=== PATIENT | female | born 1960 | race Two or more races ===

== ENCOUNTER → 2016-09-14 | Outpatient (CLI) | payer MEDICARE, MEDICAID ==
[2014-04-07 11:00] VITALS: BP 111/72
[~2016-09-14] MED LIST: ALBU0.63 IH; ALPR0.25 PO; AMIT25TA PO; CELE200C PO; COLE1TAB PO; DEXL60CA PO; DICY10CA53 PO; DICY20TA3 PO; ERGO500012 PO; FERR325T31 PO; GABA-585 PO; GUAI5LIQ3 PO; HYDR2TAB PO; HYDR2TAB13 PO; HYDR4TAB PO; IOHEXOL 240 MG/ML 50ML VIAL. PO ONE; IOHEXOL 300 MG/ML 75 ML VIAL IV ONE; KETO75CA PO; MECL25TA3 PO; OXYC-323 PO; SUCR1TAB29 PO; VENTOLIN HFA18 GM IH; WARF2TAB7 PO; WARF4TAB7 PO
--- NOTE | 2016-09-14 13:52 | RAD ---
CT of the abdomen with contrast, 09/14/2016: History: Abdominal pain Multidetector CT imaging was performed following oral and IV administration of contrast. The gallbladder is surgically absent. The liver demonstrates a mildly prominent Alex's lobe. No hepatic mass or bile duct dilatation is seen. The pancreas is normal. The spleen is of normal size. There is minimal renal cortical scarring. The kidneys show no evidence of obstruction or mass. There is moderate aortoiliac calcific plaquing without evidence of aneurysm. No retroperitoneal or mesenteric adenopathy is seen. The visualized bowel loops are unremarkable. No free fluid or free air is evident in the abdomen or pelvis. IMPRESSION: 1. Status post cholecystectomy. 2. Moderate aortoiliac atherosclerosis. 3. No acute abdominal abnormality is detected. PQRS Compliance Statement: One or more of the following individualized dose reduction techniques were utilized for this examination: 1. Automated exposure control 2. Adjustment of the mA and/or kV according to patient size 3. Use of iterative reconstruction technique
== END | disposition home or self-care (01) ==
LOC: CT 11:55
PROVIDERS: ATTEND Internal Medicine
DX: R10.9 Unspecified abdominal pain (principal); K76.0 Fatty (change of) liver, not elsewhere classified
CPT/HCPCS: 74160

== ENCOUNTER → 2017-01-11 | Outpatient (CLI) | payer MEDICARE, MEDICAID ==
[2014-04-07 11:00] VITALS: BP 111/72
[~2017-01-11] MED LIST changes: -DEXL60CA PO; +DEXL60CA2 PO; -ERGO500012 PO; +ERGO500027 PO; +FERR-36 PO; -FERR325T31 PO; -HYDR2TAB13 PO; +HYDR2TAB31 PO; -IOHEXOL 240 MG/ML 50ML VIAL. PO ONE; -IOHEXOL 300 MG/ML 75 ML VIAL IV ONE; -SUCR1TAB29 PO; +SUCR1TAB35 PO
--- NOTE | 2017-01-11 18:32 | RAD ---
DATE: 01/11/2017 EXAM: DIGITAL SCREEN BILAT W/CAD HISTORY: Routine screening COMPARISON: 01/12/2016 This study was interpreted with the benefit of Computerized Aided Detection (CAD). The breast parenchyma shows scattered fibroglandular densities. Breast parenchyma level B. FINDINGS: No new or enlarging breast densities are seen. Benign type calcifications are again noted. No suspicious microcalcifications have developed. IMPRESSION: Stable mammograms without evidence of malignancy. BI-RADS CATEGORY: 2 BENIGN FINDING(S) RECOMMENDED FOLLOW-UP: 12M 12 MONTH FOLLOW-UP PQRS compliance statement: Patient information was entered into a reminder system with a target due date for the next mammogram. Mammography is a sensitive method for finding small breast cancers, but it does not detect them all and is not a substitute for careful clinical examination. A negative mammogram does not negate a clinically suspicious finding and should not result in delay in biopsying a clinically suspicious abnormality. "Our facility is accredited by the [employer] Mammography [employer]."
== END | disposition home or self-care (01) ==
LOC: MAMMO 13:42
PROVIDERS: ATTEND Internal Medicine
DX: Z12.31 Encounter for screening mammogram for malignant neoplasm of breast (principal)
CPT/HCPCS: G0202; 77067

== ENCOUNTER → 2017-09-16 | Outpatient (CLI) | payer MEDICARE, MEDICAID | END | disposition home or self-care (01) | LOC: NM 07:44 | DX: K30 Functional dyspepsia (principal) | CPT/HCPCS: 78264; A9541 ==

== ENCOUNTER → 2018-02-07 | Day surgery (SDC) | payer MEDICARE, MEDICAID ==
[~2018-02-07] MED LIST changes: +HYDROmorphone 2 MG/ML VIAL IV PRN; +IV RINGERS,LACTATED 1000ML 1,000 ML IV SCH; +LIDOCAINE 1% PF 2 ML VIAL. ID PRN; +MORPHINE SULFATE 2 MG/ML VIAL. IV PRN; +NYSTATIN TOPICAL POWDER 15GM BOTTLE. TP PRN; +ONDANSETRON PF 4 MG/2 ML VIAL. IV PRN; +PROCHLORPERAZINE 10 MG/2 ML VIAL. IV PRN; +PROPOFOL 20 ML IV ONE; -WARF2TAB7 PO; +WARF2TAB96 PO; +WARF4TAB64 PO; -WARF4TAB7 PO; +fentaNYL PF VIAL 100 MCG/2 ML VIAL IV PRN
[2018-02-07 10:35] VITALS: BP 180/91
== END ==
LOC: OPS 09:08 → EDSTATUS 10:00
PROVIDERS: ATTEND Internal Medicine Gastroenterology
DX: R10.13 Epigastric pain (principal); K21.9 Gastro-esophageal reflux disease without esophagitis; E11.9 Type 2 diabetes mellitus without complications; F32.9 Major depressive disorder, single episode, unspecified; F41.9 Anxiety disorder, unspecified; E03.9 Hypothyroidism, unspecified; K76.0 Fatty (change of) liver, not elsewhere classified; E78.00 Pure hypercholesterolemia, unspecified; J45.909 Unspecified asthma, uncomplicated; Z87.01 Personal history of pneumonia (recurrent); Z90.49 Acquired absence of other specified parts of digestive tract; Z90.710 Acquired absence of both cervix and uterus; Z98.51 Tubal ligation status; Z87.39 Personal history of other diseases of the musculoskeletal system and connective tissue; Z96.651 Presence of right artificial knee joint; Z87.440 Personal history of urinary (tract) infections
CPT/HCPCS: 43235; J2704; J7120

== ENCOUNTER → 2018-02-08 | Outpatient (CLI) | payer MEDICARE, MEDICAID ==
[2018-02-07 10:35] VITALS: BP 180/91
[~2018-02-08] MED LIST changes: -HYDROmorphone 2 MG/ML VIAL IV PRN; +IOHEXOL 240 MG/ML 50ML VIAL. PO ONE; +IOHEXOL 300 MG/ML 100ML VIAL. IV ONE; -IV RINGERS,LACTATED 1000ML 1,000 ML IV SCH; -LIDOCAINE 1% PF 2 ML VIAL. ID PRN; -MORPHINE SULFATE 2 MG/ML VIAL. IV PRN; -NYSTATIN TOPICAL POWDER 15GM BOTTLE. TP PRN; -ONDANSETRON PF 4 MG/2 ML VIAL. IV PRN; -PROCHLORPERAZINE 10 MG/2 ML VIAL. IV PRN; -PROPOFOL 20 ML IV ONE; -fentaNYL PF VIAL 100 MCG/2 ML VIAL IV PRN
--- NOTE | 2018-02-08 15:40 | RAD ---
CT of the abdomen and pelvis with contrast, 02/08/2018: HISTORY: Abdominal pain Multidetector CT imaging was performed following oral and IV administration of contrast. Comparison is made to a study from 09/14/2016. The gallbladder is surgically absent. The liver is now of lower than normal density in a diffuse pattern compatible with fatty change. No hepatic mass or bile duct dilatation is seen. The pancreas is unremarkable. The spleen is of normal size. No renal or adrenal abnormality is detected. There is moderate calcific plaquing of the abdominal aorta without evidence of aneurysm. No abdominal or pelvic adenopathy is seen. The uterus is surgically absent. The bowel loops are not dilated. No free fluid or free air is evident in the abdomen or pelvis. IMPRESSION: 1. Hepatic steatosis. 2. No acute abdominal or pelvic abnormality is detected. PQRS Compliance Statement: One or more of the following individualized dose reduction techniques were utilized for this examination: 1. Automated exposure control 2. Adjustment of the mA and/or kV according to patient size 3. Use of iterative reconstruction technique Electronically signed by: Jovanni Johnson MD (02/08/2018 3:37 PM) [facility]
== END | disposition home or self-care (01) ==
LOC: CT 09:21
PROVIDERS: ATTEND Internal Medicine Gastroenterology
DX: K76.0 Fatty (change of) liver, not elsewhere classified (principal); J45.909 Unspecified asthma, uncomplicated; E03.9 Hypothyroidism, unspecified; E11.9 Type 2 diabetes mellitus without complications; Z90.710 Acquired absence of both cervix and uterus
CPT/HCPCS: 74177; Q9966; Q9967

== ENCOUNTER → 2018-04-14 | Outpatient (CLI) | payer MEDICARE, MEDICAID ==
[2018-02-07 10:35] VITALS: BP 180/91
[~2018-04-14] MED LIST changes: -IOHEXOL 240 MG/ML 50ML VIAL. PO ONE; -IOHEXOL 300 MG/ML 100ML VIAL. IV ONE
--- NOTE | 2018-04-17 10:38 | RAD ---
DATE: 04/17/2018 EXAM: MAMMO AJAY SCREENING BILATERAL HISTORY: Routine screening COMPARISON: Previous mammogram from 2017 and 2016 This study was interpreted with the benefit of Computerized Aided Detection (CAD). FINDINGS: Breast Density: SCATTERED The breast parenchyma shows scattered fibroglandular densities. Breast parenchyma level B. The skin and nipples are within normal limits. There is an oval-shaped well-circumscribed mass in the medial aspect of the left breast measuring 8 mm and approximately 5.3 cm from the nipple most likely at 9-10 o'clock position. Otherwise, no suspicious ossifications, spiculated mass or area of architectural distortion. IMPRESSION: Left medial breast mass as described above likely simple cyst or a intramammary lymph node. However further evaluation with ultrasound recommended. BI-RADS CATEGORY: 0 INCOMPLETE: NEED ADDITIONAL IMAGING EVALUATION AND/OR PRIOR MAMMOGRAMS FOR COMPARISON RECOMMENDED FOLLOW-UP: ADD ADDITIONAL IMAGING. Ultrasound of the left medial breast recommended. PQRS compliance statement: Patient information was entered into a reminder system with a target due date for the next mammogram. Mammography is a sensitive method for finding small breast cancers, but it does not detect them all and is not a substitute for careful clinical examination. A negative mammogram does not negate a clinically suspicious finding and should not result in delay in biopsying a clinically suspicious abnormality. "Our facility is accredited by the [employer] Mammography Program."
== END | disposition home or self-care (01) ==
LOC: MAMMO 13:58
PROVIDERS: ATTEND Internal Medicine
DX: Z12.31 Encounter for screening mammogram for malignant neoplasm of breast (principal); N63.22 Unspecified lump in the left breast, upper inner quadrant
CPT/HCPCS: 77063; 77067

== ENCOUNTER → 2018-04-19 | Outpatient (CLI) | payer MEDICARE, MEDICAID ==
[2018-02-07 10:35] VITALS: BP 180/91
--- NOTE | 2018-04-19 14:34 | RAD ---
Left breast ultrasound, 04/19/2018: History: Breast nodule A targeted ultrasound exam of the left breast was performed at the 9-10:00 location where a small nodule seen on recent mammography. At the 10:00 location approximately 5 cm from the nipple there is a 7 x 3 x 4 mm nodule. Its margins are smooth. It is nearly anechoic with only a few low level internal echoes. No significant posterior acoustic enhancement or shadowing is seen. The features are suggestive of a complicated cyst. No other abnormality is seen in this region. IMPRESSION: Probably benign small left breast nodule as described above. Sonographic surveillance beginning in 4-6 months is suggested. BI-RADS 3-probably benign findings
== END | disposition home or self-care (01) ==
LOC: US 13:55
PROVIDERS: ATTEND Internal Medicine
DX: R92.8 Other abnormal and inconclusive findings on diagnostic imaging of breast (principal)
CPT/HCPCS: 76641

== ENCOUNTER → 2018-08-11 | Outpatient (CLI) | payer MEDICARE, MEDICAID ==
[2018-02-07 10:35] VITALS: BP 180/91
[~2018-08-11] MED LIST changes: -OXYC-323 PO; +OXYC1TAB15 PO
--- NOTE | 2018-08-11 11:36 | RAD ---
Left breast ultrasound, 08/11/2018: History: 6 month follow-up Comparison is made to a study from 04/19/2018. A small nodule is redemonstrated at the 10:00 location approximately 5 cm from the nipple. It is of similar size when compared to the previous study, currently measuring 6 x 3 x 5 mm. Its margins are smooth. There are low level internal echoes. There is no significant posterior acoustic enhancement or shadowing. It is wider than tall. It is again most likely a complicated cyst. No other abnormality is seen in this region. IMPRESSION: Stable, probably benign left breast nodule. Follow-up left breast ultrasound in 6 months at the time of the patient's yearly mammography is suggested. BI-RADS 3-probably benign findings
== END | disposition home or self-care (01) ==
LOC: US 10:53
PROVIDERS: ATTEND Internal Medicine
DX: N63.22 Unspecified lump in the left breast, upper inner quadrant (principal)
CPT/HCPCS: 76641

== ENCOUNTER → 2019-03-02 | Outpatient (CLI) | payer MEDICARE, MEDICAID ==
[2018-02-07 10:35] VITALS: BP 180/91
[~2019-03-02] MED LIST changes: +REGADENOSON 0.4 MG/5 ML DISP.SYRIN. IV ONE
--- NOTE | 2019-03-02 12:46 | RAD ---
MR#: [id number] Date of Study: 03/02/2019 Ordering Physician: ANITA ANTHONY, Referring Physician: VIRGEN DOTSON Tech: RT Kavita GarrettR) (N) APPROVED REPORT Test Type: Pharmacological Stress Nurse/Tech: Smiley OSCAR Test Indications: CP Cardiac History: HTN, See EMR Medications: See EMR Medical History: Asthma, COPD, DM, See EMR Resting ECG: SR Resting Heart Rate: 66 bpm Resting Blood Pressure: 153/80mmHg Pretest Chest Pain: No chest pain Nurse/Tech Notes Lungs CTA, Heart tones regular. Consent: The procedure was explained to the patient in lay terms. Informed consent was witnessed. Matthew eout was entered into [employer]. History and Stress Test performed by RT Eli (R) (N) Pharm. Details Pharmacologic stress testing was performed using 0.4mg per 5ml of regadenoson given intravenously ove r 7-10 seconds. Stress Symptoms Pt denies CP or SOB, Pt c/o lower back pain @ 8/10; at stage R time 00:55. Lower back pain was resolv ed by the end of recovery. POST EXERCISE Reason for Termination: Infusion complete Max HR: 109 bpm Max Blood Pressure: 162/77mmHg Blood Pressure response to exercise: Normal blood pressure response during stress. Heart Rate response to exercise: WNL Chest Pain: No. Arrhythmia: No. ST Change: No. INTERPRETATION Stress EKG Conclusion: The resting EKG shows a sinus rhythm with mild nonspecific ST changes. The stress EKG shows no significant changes from baseline. No EKG evidence of stress induced ischemia. Imaging Protocol IMAGE PROTOCOL: Rest Tc-99m/stress Tc-99m 1 day Rest: Stress: Viability: Radiopharm.Tc99m ZioiawbjgAb14o Sestamibi Nytk89zSq 31.6mCi Duration 13min. 13min. Img Date 03/02/2019 03/02/2019 Inj-Img Late24rca. 60min. Rest Admin Site:IV - Left AntecubitalAdministrator:RT Kavita GarrettR)(N) Stress Admin Site: IV - Left AntecubitalAdministrator: Kavitha Mccarthy, RT (R)(N) STRESS DATA End Diast. Vol.65.0mlLVEDV index BSA33.0ml End Syst. Vol.10.0mlLVESV index BSA5.0ml Myocardial Mass97.0gEject. Nxwjqwtt46.0% Stress Scores Regional WT0.00Summed WT5.00 Regional WM0.00Summed WM0.00 LV Perfusion The stress images show no significant defects. The rest images show no significant defects. Nuclear imaging show no reversible ischemia or infarct. Wall Motion LV systolic function is normal with an ejection fraction of > 70%. LV Perf. Quant 17 Seg. SSS0.00 17 Seg. SRS0.00 17 Seg. SDS0.00 Stress Defect Extent (% LAD)0.00Rest Defect Extent (% LAD)0.00Rev. Defect Extent (% LAD)0.00 Stress Defect Extent (% LCX) 0.00Rest Defect Extent (% LCX)0.00Rev. Defect Extent (% LCX)0.00 Stress Defect Extent (% RCA)0.00Rest Defect Extent (% RCA)0.00Rev. Defect Extent (% RCA)0.00 Stress Defect Extent (% DMITRY)0.00Rest Defect Extent (% DMITRY)0.00Rev. Defect Extent (% DMITRY)0.00 Conclusion 1. No EKG evidence of stress induced ischemia. 2. Nuclear imaging shows no reversible ischemia or infarct. 3. Normal LV systolic function with an ejection fraction of > 70%. 4. Low risk Lexiscan nuclear stress test. Signed by : Leandro Mckeon MD Electronically Approved : 03/02/2019 12:45:30
== END | disposition home or self-care (01) ==
LOC: NM 07:14
PROVIDERS: ATTEND Internal Medicine Cardiovascular Disease
DX: R07.9 Chest pain, unspecified (principal); I10 Essential (primary) hypertension; E11.9 Type 2 diabetes mellitus without complications; J45.909 Unspecified asthma, uncomplicated; J44.9 Chronic obstructive pulmonary disease, unspecified
CPT/HCPCS: 78452; 93017; A9500; J2785

== ENCOUNTER → 2019-03-09 | Outpatient (CLI) | payer MEDICARE, MEDICAID ==
[2018-02-07 10:35] VITALS: BP 180/91
[~2019-03-09] MED LIST changes: -REGADENOSON 0.4 MG/5 ML DISP.SYRIN. IV ONE
--- NOTE | 2019-03-09 15:21 | CARD ---
MR#: [id number] Date of Study: 03/09/2019 Ordering Physician: ANITA ANTHONY, Referring Physician: ANITA ANTHONY Tech: Silvia Kinney RDCS APPROVED REPORT EXAM: Two-dimensional and M-mode echocardiogram with Doppler and color Doppler. Other Information Quality : Fair INDICATION Chest Pain 2D DIMENSIONS RVDd2.7 (2.9-3.5cm)Left Atrium(2D)3.0 (1.6-4.0cm) IVSd1.1 (0.7-1.1cm)Aortic Root(2D)2.6 (2.0-3.7cm) LVDd4.5 (3.9-5.9cm)LVOT Diameter2.0 (1.8-2.4cm) PWd0.9 (0.7-1.1cm)LVDs3.2 (2.5-4.0cm) FS (%) 28.4 %SV51.8 ml LVEF(%)54.9 (>50%) Aortic Valve AoV Peak Teja.128.1cm/sAoV VTI24.2cm AO Peak GR.6.6mmHgLVOT Peak Teja.125.0cm/s AO Mean GR.4mmHgAVA (VMAX)2.95cm2 JERMAINE (VTI)2.90cm2 Mitral Valve MV E Zlksuzzr63.6cm/sMV DECEL PUYF312it MV A Hhqvubme53.1cm/sE/A Ratio1.2 Tricuspid Valve TR P. Ajwbzdgs880bw/sRAP WMMTAONA8seSg TR Peak Gr.19opYpBNFM65gwPk Pulmonary Vein S1 Hegjjdyp85.3cm/sD2 Qkrifhli01.1cm/s LEFT VENTRICLE The left ventricle is normal size. There is normal left ventricular wall thickness. The left ventricu lar systolic function is normal. The Ejection Fraction is 55-60%. There is normal LV segmental wall m otion. RIGHT VENTRICLE The right ventricle is normal size. The right ventricular systolic function is normal. ATRIA The left atrium size is normal. The right atrium size is normal. The interatrial septum is intact wit h no evidence for an atrial septal defect or patent foramen ovale as noted on 2-D or Doppler imaging. AORTIC VALVE The aortic valve is calcified but opens well. Doppler and Color Flow revealed no significant aortic r egurgitation. There is no significant aortic valvular stenosis. MITRAL VALVE The mitral valve is calcified but opens well. There is no evidence of mitral valve prolapse. There is no mitral valve stenosis. Doppler and Color-flow revealed trace to mild mitral regurgitation. TRICUSPID VALVE The tricuspid valve is normal in structure and function. Doppler and Color Flow revealed trace tricus pid regurgitation. The PA pressure was estimated at 30 mmHg. There is no tricuspid valve stenosis. PULMONIC VALVE The pulmonic valve is not well visualized. Doppler and Color Flow revealed no pulmonic valvular regur gitation. There is no pulmonic valvular stenosis. GREAT VESSELS The aortic root is normal in size. The ascending aorta is normal in size. The IVC is normal in size a nd collapses >50% with inspiration. PERICARDIAL EFFUSION There is no evidence of significant pericardial effusion. Critical Notification Critical Value: No <Conclusion> The left ventricular systolic function is normal. The Ejection Fraction is 55-60%. There is normal LV segmental wall motion. Trace to mild mitral regurgitation. Trace tricuspid regurgitation. The PA pressure was estimated at 30 mmHg. There is no evidence of significant pericardial effusion. Signed by : Anita Anthony, Electronically Approved : 03/09/2019 15:20:56
== END | disposition home or self-care (01) ==
LOC: ECHO 14:33
PROVIDERS: ATTEND Internal Medicine Cardiovascular Disease
DX: I08.0 Rheumatic disorders of both mitral and aortic valves (principal)
CPT/HCPCS: 93306

== ENCOUNTER → 2019-07-12 | Outpatient (CLI) | payer MEDICAID, MEDICARE ==
[2018-02-07 10:35] VITALS: BP 180/91
[~2019-07-12] MED LIST changes: +MECL-75 PO; -MECL25TA3 PO
--- NOTE | 2019-07-12 15:29 | RAD ---
Bilateral lower extremity arterial duplex ultrasound 07/12/2019 INDICATION: Leg pain. History of right xoirn-qdw-tsct amputation. COMPARISON STUDY: None Findings: Ultrasound evaluation of the major arteries of the bilateral lower extremities was performed. This includes color Doppler imaging spectral analysis. There is an araky-nci-vbse amputation on the right. Right common femoral and superficial femoral arteries are grossly patent. Left common femoral, superficial femoral, popliteal, posterior tibial, peroneal, anterior tibial, and dorsalis pedis arteries demonstrate normal waveform morphology and flow velocities. No focal occlusion or aneurysm is seen. No focal elevation in velocity suggestive of hemodynamically significant stenosis is seen. IMPRESSION: No ultrasound evidence of hemodynamically significant, major arterial stenosis involving either lower extremity Electronically signed by: Matthew Cuello MD (07/12/2019 3:26 PM) [facility]
== END | disposition home or self-care (01) ==
LOC: US 11:47
PROVIDERS: ATTEND Internal Medicine Cardiovascular Disease
DX: M79.605 Pain in left leg (principal); M79.604 Pain in right leg
CPT/HCPCS: 93925

== ENCOUNTER → 2019-07-30 | Outpatient (CLI) | payer MEDICAID, MEDICARE ==
[2018-02-07 10:35] VITALS: BP 180/91
--- NOTE | 2019-07-30 12:29 | RAD ---
AP and Lateral Views of the Chest 07/30/2019 12:00 AM Indication: Cough, symptoms x2 months Comparison: None Findings: There is no new focal consolidation or infiltrate identified. Mild scarring in the lingula is similar to comparison exam. Heart size is normal. There is no evidence of pneumothorax or pleural effusion. No acute osseous abnormalities are identified. Impression: No evidence of acute cardiopulmonary process. Electronically signed by: Matthew Cuello MD (07/30/2019 12:26 PM) [facility]
== END | disposition home or self-care (01) ==
LOC: RAD 09:48
PROVIDERS: ATTEND Internal Medicine
DX: R05 Cough (principal)
CPT/HCPCS: 71046

== ENCOUNTER 2019-07-31 13:27 | Emergency (ER) | payer MEDICARE ==
[~2019-07-31] VITALS: Ht 144.8 cm; Wt 77.2 kg
[2019-07-31 13:56] VITALS: BP 150/67
[2019-07-31] MEDS ORDERED: DEXAMETHASONE SOD PHOS 20 MG/5 ML VIAL. PO ONE (14:15)
[2019-07-31] MEDS ORDERED: IPRATRPIUM/ALBUTEROL 0.5/2.5MG 3 ML NEBU. NEB ONE (14:15)
[2019-07-31 14:35] LABS: INFLUENZA A PATIENT NEGATIVE (NEGATIVE); INFLUENZA B PATIENT NEGATIVE (NEGATIVE)
--- NOTE | 2019-07-31 15:09 | PHYS DOC ---
Past Medical History Past Medical History: Anxiety, Asthma, Depression, GERD Additional Past Medical Histor: FATTY LIVER, Past Surgical History: Appendectomy, Cholecystectomy, Hysterectomy, Knee Replacement, Oophorectomy, Tubal ligation, Other Additional Past Surgical Histo: tumor and scar tissue removal Smoking Status: Never Smoker Alcohol Use: None Drug Use: None Adult General Chief Complaint Chief Complaint: COUGH HPI HPI Patient is a 59 year old female, accompanied by her family, who presents to the emergency department with complaints of a cough for the last 2- 1/2 months. Patient states she was seen on July 27 at her primary care doctor's office and was prescribed medications at that time. Patient states for the last 2-3 days she has noticed an increase in her symptoms and reports feeling worse. She complains of a dry cough, body aches, fatigue, and headache. Patient denies any nausea, vomiting, diarrhea, abdominal pain, rash, sore throat, ear pain, vision changes, numbness, tingling, or weakness. Review of Systems Review of Systems All other ROS is negative unless otherwise noted in HPI. Current Medications Current Medications Current Medications Medications (Trade) Dose Ordered Sig/Jac Start Time Stop Time Status Last Admin Dose Admin Albuterol/ Ipratropium (Duoneb) 3 ml 1X ONCE 07/31/19 14:15 07/31/19 14:16 DC 07/31/19 14:23 3 ML Dexamethasone Sodium Phosphate (Decadron) 10 mg 1X ONCE 07/31/19 14:15 07/31/19 14:16 DC 07/31/19 14:15 10 MG Allergies Allergies Allergies Coded Allergies Type Severity Reaction Last Updated Verified chlorhexidine Allergy Severe SEVERE ITCHING WITH 2% CHLORHEXIDINE CLOTHS 02/07/18 Yes duloxetine HCl Allergy Severe Swelling, TONGUE SWELLED 02/07/18 Yes hydrocodone Adverse Reaction Intermediate Nausea and Vomiting 02/07/18 Yes oxycodone Adverse Reaction Intermediate VOMITING 02/07/18 Yes Physical Exam Physical Exam See Above Constitutional: Well developed, well nourished, no acute distress, ill appearance HENT: Normocephalic, atraumatic, bilateral external ears normal, bilateral TMs normal, posterior pharynx normal oropharynx moist, nose congested Eyes: PERRLA, conjunctiva injected bilaterally, no discharge. [] Neck: Normal range of motion, no stridor. [] Cardiovascular:Heart rate regular rhythm, no murmur [] Lungs & Thorax: Bilateral breath sounds clear to auscultation, Respirations even and unlabored, no retractions, no respiratory distress Skin: Warm, dry, no erythema, no rash. [] Back: No tenderness Extremities: No cyanosis, ROM intact Neurologic: Alert and oriented X 3, no focal deficits noted. [] Psychologic: Affect normal, judgement normal, mood normal. Current Patient Data Vital Signs Vital Signs Date Time Temp Pulse Resp B/P (MAP) Pulse Ox O2 Delivery O2 Flow Rate FiO2 07/31/19 14:24 95 Room Air 07/31/19 13:56 97.9 84 16 150/67 (94) 97.9 Lab Values Laboratory Tests Test 07/31/19 14:07 Influenza Type A Antigen Negative (NEGATIVE) Influenza Type B Antigen Negative (NEGATIVE) EKG EKG [] Radiology/Procedures Radiology/Procedures [] Course & Med Decision Making Course & Med Decision Making Pertinent Labs and Imaging studies reviewed. (See chart for details) Patient is a 59-year-old female who presented to the emergency department with complaints of increased symptoms and increased cough for the last 2-3 days. She reported that she has had actually had a cough for over 2 months. Patient was seen by her primary care doctor week ago and prescribed medications. Patient states she has been taking the medications as prescribed. Testing for influenza was negative, advised patient that the increased symptoms are consistent with flu. Although her test was negative in the emergency department I recommend fdcj-jkz-vtrseqg flu remedies as needed for symptoms. Continue taking the medications were prescribed by your primary care doctor. Follow-up with her primary care doctor if symptoms persist, return to the ER symptoms worsen. Patient Respirations even and unlabored, no retractions, no respiratory distress [] Dragon Disclaimer Dragon Disclaimer This electronic medical record was generated, in whole or in part, using a voice recognition dictation system. Departure Departure Impression: Primary Impression: Flu-like symptoms Disposition: 01 HOME, SELF-CARE Condition: STABLE Referrals: JOSE LEIVA MD (PCP) Patient Instructions: Influenza, Adult, Ktge-ba-Eecq Additional Instructions: Continue taking her medications as prescribed by your primary care doctor. Alternate Tylenol and ibuprofen as needed for fever. Increase clear fluids and rest. Diet as tolerated. Recommend use of ogqd-fye-zcmygmg flu medications as needed for relief of your symptoms. Follow up with your primary care doctor if symptoms persist, return to the ER symptoms worsen. YANELIS ARENAS APRN Jul 31, 2019 15:09
== END 2019-07-31 15:16 | disposition home or self-care (01) ==
LOC: ER 13:27
DX: R05 Cough (principal); M79.10 Myalgia, unspecified site; R51 Headache; R53.83 Other fatigue; K21.9 Gastro-esophageal reflux disease without esophagitis; J45.909 Unspecified asthma, uncomplicated; Z88.5 Allergy status to narcotic agent; Z88.8 Allergy status to other drugs, medicaments and biological substances
CPT/HCPCS: 87804; 94640; 99283; J1100; J7620

== ENCOUNTER → 2020-03-18 | Outpatient (CLI) | payer MEDICARE ==
--- NOTE | 2020-03-18 18:32 | RAD ---
BILATERAL SCREENING MAMMOGRAM, 3-D History: Routine screening. Comparison: 07/19/2013 and subsequent exams. Technique: MLO and CC digital tomosynthesis (3D) images obtained. Radiologist reviewed these images on dedicated workstation. Findings: Breast Tissue Density B : There are scattered areas of fibroglandular density. There are no dominant masses, suspicious microcalcifications, or architectural distortion. IMPRESSION: No mammographic evidence of malignancy. Recommend routine screening. BI-RADS category 1: Negative. The images were reviewed with computer-aided detection. Patient information is entered into reminder system with a target due date for the next screening mammogram. Mammography is the most sensitive method for finding small breast cancers, but it does not detect them all and is not a substitute for careful clinical examination. A negative mammogram does not negate a clinically suspicious finding and should not result in delay in biopsying a clinically suspicious abnormality. "Our facility is accredited by the [employer] Mammography Program." Electronically signed by: Amos Rosen MD (03/18/2020 6:29 PM) [id number]
== END | disposition home or self-care (01) ==
LOC: MAMMO 13:45
PROVIDERS: ATTEND Internal Medicine
DX: Z12.31 Encounter for screening mammogram for malignant neoplasm of breast (principal)
CPT/HCPCS: 77063; 77067

== ENCOUNTER → 2020-04-28 | Outpatient (CLI) | payer MEDICARE, MEDICAID ==
--- NOTE | 2020-04-28 16:53 | RAD ---
L-spine 3 views INDICATION: degenerative joint disease FINDINGS: AP, lateral and coned-down lateral views of the lumbar spine show 6 lumbar type vertebrae with normal alignment and no fracture or aggressive appearing osseous lesions. There are relatively mild multilevel disc space narrowing and endplate osteophytic spurring, best appreciated at L 5-6 and at L2-L3. Facet hypertrophic changes are present, most notably at L5 L6 and L6 S1. The soft tissues show arterial calcifications in abdominal aorta and surgical clips in the right upper quadrant abdomen. Visualized sacroiliac joints and hips are unremarkable. IMPRESSION: 6 lumbar type vertebrae with no acute or aggressive appearing osseous lesions but mild multilevel lumbar spinal degenerative changes are shown by x-ray. More detailed evaluation could be pursued with MRI or CT lumbar myelogram as clinically warranted.. Electronically signed by: Darryl Cornelius MD (04/28/2020 4:51 PM) [id number]
== END ==
LOC: RAD 08:13
PROVIDERS: ATTEND Internal Medicine
DX: M47.816 Spondylosis without myelopathy or radiculopathy, lumbar region (principal); M25.78 Osteophyte, vertebrae
CPT/HCPCS: 72100